=== PATIENT | female | born 1970 | race African-American/Black ===

== ENCOUNTER 2017-01-20 20:22 | Emergency (ER) | payer BC ==
[~2017-01-20] VITALS: Ht 167.6 cm; Wt 70.0 kg
[~2017-01-20 20:22] MED LIST: AMLO5TAB4 PO; FERR-63 PO; NAPR-679
[2017-01-21] MEDS ORDERED: HYDROCODONE/ACETAMINOPHEN 5/325MG TABLET PO ONE
[2017-01-21 00:15] LABS: BASOPHILS % 1.2 % (0.0-2.0); HEMATOCRIT. 34.8 % (36.0-48.0); HEMOGLOBIN. 11.1 g/dL (12.0-16.0); LYMPHOCYTES % 34.7 % (20.0-50.0); MEAN CORPUSCULAR HEMOGLOBIN 25.8 pg (28.0-32.0); MEAN CORPUSCULAR VOLUME 80.8 fL (81.0-99.0); MEAN PLATELET VOLUME 8.7 fl (7.4-10.4); MONOCYTES % 7.4 % (2.0-8.0); NEUTROPHILS % 53.7 % (40.0-76.0); PLATELET 252 x1000/uL (130-400); RED BLOOD CELL COUNT 4.31 mill/uL (4.2-5.4); RED CELL DISTRIBUTION WIDTH 14.8 % (11.6-14.6); WHITE BLOOD COUNT 6.1 x1000/uL (4.5-11.0)
[2017-01-21 00:31] LABS: ANION GAP 11; CALCIUM 8.4 mg/dL (8.5-10.1); CARBON DIOXIDE 26 mEq/L (21-32); CHLORIDE 108 mEq/L (98-107); INDEX HEMOLYSI 1 (1-3); INDEX ICTERIC 1 (1-4); INDEX LIPEMIC 1 (1-3); TROPONIN I < 0.02 ng/mL (0.00-0.04); UREA NITROGEN BLOOD 6 mg/dL (7-21); eGFR > 60 mL/min (>60)
[2017-01-21 01:13] VITALS: BP 126/87
== END 2017-01-21 01:25 | disposition home or self-care (01) ==
LOC: ER 20:23
DX: R07.9 Chest pain, unspecified (principal); Z79.899 Other long term (current) drug therapy; I10 Essential (primary) hypertension; K21.9 Gastro-esophageal reflux disease without esophagitis
CPT/HCPCS: 36415; 71010; 80048; 84484; 85025; 85379; 93005; 99285; J7030; Z7610

== ENCOUNTER 2017-11-03 11:13 | Emergency (ER) | payer BC ==
[~2017-11-03] VITALS: Ht 170.2 cm; Wt 70.0 kg
[2017-11-03] MEDS ORDERED: MAGNESIUM/ALUMINUM HYDROXIDE/SIMETHICONE 30ML UDC PO STA (12:59)
[2017-11-03] MEDS ORDERED: ONDANSETRON HCL 4MG/2ML VIAL IV STA (12:59)
[2017-11-03] MEDS ORDERED: FAMOTIDINE 20MG/2ML VIAL IV ONE (13:00)
[2017-11-03 13:54] LABS: BASOPHILS % 0.8 % (0.0-2.0); HEMATOCRIT. 35.8 % (36.0-48.0); HEMOGLOBIN. 11.7 g/dL (12.0-16.0); LYMPHOCYTES % 20.4 % (20.0-50.0); MEAN CORPUSCULAR HEMOGLOBIN 25.8 pg (28.0-32.0); MEAN CORPUSCULAR VOLUME 78.8 fL (81.0-99.0); MEAN PLATELET VOLUME 8.2 fl (7.4-10.4); MONOCYTES % 6.7 % (2.0-8.0); NEUTROPHILS % 71.1 % (40.0-76.0); PLATELET 319 x1000/uL (130-400); RED BLOOD CELL COUNT 4.55 mill/uL (4.2-5.4); RED CELL DISTRIBUTION WIDTH 16.4 % (11.6-14.6)
[2017-11-03 14:06] LABS: D-DIMER 0.2 mg/L FEU (<0.50); INR 1.1; PARTIAL THROMBOPLASTIN TIME 26.6 sec (23.4-31.0)
[2017-11-03 14:10] LABS: CARBON DIOXIDE 24 mEq/L (21-32); CHLORIDE 107 mEq/L (98-107); TROPONIN I < 0.02 ng/mL (0.00-0.04)
[2017-11-03 14:20] LABS: HCG SCREEN NEGATIVE
[2017-11-03] MEDS ORDERED: POTASSIUM CHLORIDE 20MEQ TABLET SR PO ONE (15:15)
[2017-11-03 16:08] LABS: CLARITY URINE CLOUDY (CLEAR); COLOR URINE YELLOW (YELLOW); KETONES URINE 1+ (NEGATIVE); LEUKOCYTE ESTERASE URINE TRACE (NEGATIVE); NITRITE URINE NEGATIVE (NEGATIVE); OCCULT BLOOD URINE NEGATIVE (NEGATIVE); PROTEIN URINE TRACE (NEGATIVE); SPECIFIC GRAVITY URINE 1.023 (1.005-1.030)
[2017-11-03 16:45] VITALS: BP 151/84
== END 2017-11-03 17:01 | disposition home or self-care (01) ==
LOC: ER 12:22
DX: K21.9 Gastro-esophageal reflux disease without esophagitis (principal); I10 Essential (primary) hypertension
CPT/HCPCS: 36415; 71045; 80053; 81001; 83690; 83880; 84443; 84484; 84703; 85025; 85379; 85610; 85730; 93005; 96374; 96375; 99285; J2405; J3490; Z7610

== ENCOUNTER 2019-03-19 21:07 | Emergency (ER) | payer BC ==
[~2019-03-19] VITALS: Ht 167.6 cm; Wt 71.0 kg
[2019-03-20] MEDS ORDERED: SODIUM CHLORIDE 0.9% 1,000 ML IV ONE (01:31)
[2019-03-20 01:48] LABS: BASOPHILS % 1.1 % (0.0-2.0); EOSINOPHILS % 0.1 % (0.0-5.0); HEMATOCRIT. 26.1 % (36.0-48.0); HEMOGLOBIN. 8.1 g/dL (12.0-16.0); LYMPHOCYTES % 22.8 % (20.0-50.0); MEAN CORPUSCULAR HEMOGLOBIN 22.3 pg (28.0-32.0); MEAN CORPUSCULAR VOLUME 71.6 fL (81.0-99.0); MONOCYTES % 4.3 % (2.0-8.0); NEUTROPHILS % 71.7 % (40.0-76.0); PLATELET 305 x1000/uL (130-400); RED BLOOD CELL COUNT 3.65 mill/uL (4.2-5.4); RED CELL DISTRIBUTION WIDTH 19.1 % (11.6-14.6)
[2019-03-20 01:50] LABS: CHLORIDE 110 mEq/L (98-107)
[2019-03-20 04:14] LABS: BASOPHILS % 0.9 % (0.0-2.0); EOSINOPHILS % 0.2 % (0.0-5.0); HEMATOCRIT. 23.6 % (36.0-48.0); HEMOGLOBIN. 7.4 g/dL (12.0-16.0); LYMPHOCYTES % 25.3 % (20.0-50.0); MEAN CORPUSCULAR HEMOGLOBIN 22.4 pg (28.0-32.0); MEAN CORPUSCULAR VOLUME 71.4 fL (81.0-99.0); MEAN PLATELET VOLUME 8.1 fl (7.4-10.4); MONOCYTES % 5.5 % (2.0-8.0); NEUTROPHILS % 68.1 % (40.0-76.0); PLATELET 296 x1000/uL (130-400); RED CELL DISTRIBUTION WIDTH 18.7 % (11.6-14.6)
[2019-03-20] MEDS ORDERED: KETOROLAC 30MG/ML VIAL IV ONE (05:45)
[2019-03-20 08:15] VITALS: BP 128/79
== END 2019-03-20 08:18 | disposition home or self-care (01) ==
LOC: ER 21:07
DX: N93.9 Abnormal uterine and vaginal bleeding, unspecified (principal); D25.9 Leiomyoma of uterus, unspecified; D64.9 Anemia, unspecified; K21.9 Gastro-esophageal reflux disease without esophagitis; I10 Essential (primary) hypertension; Z79.899 Other long term (current) drug therapy
CPT/HCPCS: 36415; 76856; 80053; 81025; 85025; 86850; 86900; 86901; 93005; 96361; 96374; 99284; J1885; J7030; Z7610

== ENCOUNTER 2021-10-17 08:08 | Emergency (ER) | payer BC, MEDICAID ==
[~2021-10-17] VITALS: Ht 167.6 cm; Wt 64.0 kg
[2021-10-17 09:14] LABS: BASOPHILS % 0.7 % (0.0-2.0); EOSINOPHILS % 0.2 % (0.0-5.0); HEMATOCRIT. 44.4 % (36.0-48.0); HEMOGLOBIN. 14.7 g/dL (12.0-16.0); LYMPHOCYTES % 35.5 % (20.0-50.0); MEAN CORPUSCULAR HEMOGLOBIN 28.4 pg (28.0-32.0); MEAN PLATELET VOLUME 8.5 fl (7.4-10.4); MONOCYTES % 6.8 % (2.0-8.0); NEUTROPHILS % 56.8 % (40.0-76.0); PLATELET 345 x1000/uL (130-400); RED BLOOD CELL COUNT 5.16 mill/uL (4.2-5.4); RED CELL DISTRIBUTION WIDTH 12.7 % (11.6-14.6)
[2021-10-17 09:17] LABS: CHLORIDE 106 mEq/L (98-107)
[2021-10-17 09:21] VITALS: BP 136/80
[2021-10-17] MEDS ORDERED: TOPUD PO (10:23)
== END 2021-10-17 10:27 | disposition home or self-care (01) ==
LOC: ER 08:08
DX: R07.89 Other chest pain (principal); I10 Essential (primary) hypertension; K21.9 Gastro-esophageal reflux disease without esophagitis; Z86.16 Personal history of COVID-19
CPT/HCPCS: 36415; 71045; 80053; 84484; 85025; 93005; 99285; Z7610